=== PATIENT | female | born 1980 | race Two or more races ===

== ENCOUNTER 2021-06-10 08:40 | Emergency (ER) | payer MEDICAID ==
[~2021-06-10] VITALS: Ht 165.1 cm; Wt 102.1 kg
[~2021-06-10 08:40] MED LIST: PREN-96 PO
[2021-06-10 09:43] VITALS: BP 115/77
== END 2021-06-10 11:54 | disposition home or self-care (01) ==
LOC: ER 08:40
DX: U07.1 COVID-19 (principal); J03.90 Acute tonsillitis, unspecified
CPT/HCPCS: 36415; 71046; 87426

== ENCOUNTER 2025-03-01 14:37 | Inpatient (IN) | payer MEDICAID ==
[~2025-03-01] VITALS: Ht 165.1 cm; Wt 101.8 kg
--- NOTE | 2025-03-01 14:55 | ECG ---
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
--- NOTE | 2025-03-01 15:14 | ED.PDOC ---
History of Present Illness HPI Comments 44-year-old female presents with a chief complaint of dizziness x onset . Patient states that her dizziness is described as the room is spinning. Patient reports that she has had this similar sensation in the past. Chief Complaint: Dizziness Time Seen by MD: 15:05 Reviewed Notes: Medications, Allergies Allergies: Coded Allergies: NO KNOWN ALLERGIES (Unverified , 04/23/13) Home Meds Active Scripts Meclizine HCl (Meclizine 25) 25 Mg Tab, 25 MG PO DAILY for 5 Days, #5 TAB Prov:CALEB NAIK MD 03/01/25 Reported Medications Vit W/ Ferrous Fumara ( One Daily) Daily Tab, 1 TAB PO DAILY, #30 TAB 11 Refills 07/17/14 Information Source: Patient Mode of Arrival: Ambulatory Severity: Moderate Timing: Days Duration: Since onset Prehospital treatment: None Past Medical History PAST MEDICAL HISTORY: Denies Surgical History: Denies all surgeries 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: Denies all REAL 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 TRANSACTION COORDINATOR Hx Family History Family History: Reviewed,noncontributory to illness Social History Smoker: Non-Smoker Lives In: Home Constitutional: denies: chills, diaphoresis, fatigue, fever, malaise, sweats, weakness, others EENTM: denies: blurred vision, double vision, ear bleeding, ear discharge, ear drainage, ear pain, ear ringing, eye pain, eye redness, hearing loss, mouth pain, mouth swelling, nasal discharge, nose bleeding, nose congestion, nose pain, photophobia, tearing, throat pain, throat swelling, voice changes, others Respiratory: denies: cough, hemoptysis, orthopnea, SOB at rest, shortness of breath, SOB with excertion, stridor, wheezing, others Cardiovascular: denies: chest pain, dizzy spells, diaphoresis, Dyspnea on exertion, edema, irregular heart beat, left arm pain, lightheadedness, palpitations, PND, syncope, others Gastrointestinal: denies: abdomen distended, abdominal pain, blood streaked bowels, constipated, diarrhea, dysphagia, difficulty swallowing, hematemesis, melena, nausea, poor appetite, poor fluid intake, rectal bleeding, rectal pain, vomiting, others Genitourinary: denies: abnormal vagina bleeding, burning, dyspareunia, dysuria, flank pain, frequency, hematuria, incontinence, pain, , vagina discharge, urgency, others Neurological: reports: dizziness; denies: fainting, headache, left sided numbness, left sided weakness, numbness, paresthesia, pre-existing deficit, right sided numbness, right sided weakness, seizure, speech problems, tingling, tremors, weakness, others Musculoskeletal: denies: back pain, gout, joint pain, joint swelling, muscle pain, muscle stiffness, neck pain, others Integumetry: denies: bruises, change in color, change in hair/nails, dryness, laceration, lesions, lumps, rash, wounds, others Allergic/Immunocompromised: denies: Difficulty Healing, Frequent Infections, Hives, Itching, others Hematologic/Lymphatic: denies: anemia, blood clots, easy bleeding, easy bruising, swollen glands, others Endocrine: denies: excessive hunger, excessive sweating, excessive thirst, excessive urination, flushing, intolerance to cold, intolerance to heat, unexplained weight gain, unexplained weight loss, others Psychiatric: denies: anxiety, bipolar disorder, depression, hopeless, panic disorder, schizophrenia, sleepless, suicidal, others All Other Systems: Reviewed and Negative Physical Exam General Appearance: Moderate Distress, Normal HEENT: Normal ENT Inspection, Pharynx Normal, TMs Normal Neck: Full Range of Motion, Non-Tender, Normal, Normal Inspection Respiratory: Chest Non-Tender, Lungs Clear, No Accessory Muscle Use, No Respiratory Distress, Normal Breath Sounds Cardiovascular: No Edema, No JVD, No Murmur, No Gallop, Normal Peripheral Pulses, Regular Rate/Rhythm Breast Exam: Deferred Gastrointestinal: No Organomegaly, Non Tender, No Pulsatile Mass, Normal Bowel Sounds, Soft Genitalia: Deferred Pelvic: Deferred Rectal: Deferred Extremities: No calf tenderness, Normal capillary refill, Normal inspection, Normal range of motion, Non-tender, No pedal edema Musculoskeletal : Apperance: Normal Neurologic: Alert, corporate administrative assistant II-XII nml as Tested, No Motor Deficits, Normal Affect, Normal Mood, No Sensory Deficits Cerebellar Function: Normal Reflexes: Normal Skin: Dry, Normal Color, Warm Peripheral Pulses: 3+ Radial (R), 3+ Radial (L) Lymphatic: No Adenopathy Was a procedure done? Was a procedure done?: No Differential Dx Considerations may include: Autonomic disorder Electrolyte imbalance X-Ray, Labs, Meds, VS Vital Signs Date Time Temp Pulse Resp B/P (MAP) Pulse Ox O2 Delivery O2 Flow Rate FiO2 03/01/25 14:46 78 03/01/25 14:38 98.9 83 18 132/86 99 98.9 Lab Test 03/01/25 15:00 Range/Units White Blood Count 13.5 H 4.4-10.8 10^3/uL Red Blood Count 4.77 4.0-5.20 10^6/uL Hemoglobin 14.0 12.2-16.2 g/dL Hematocrit 41.6 36.0-46.0 % Mean Corpuscular Volume 87.3 80.0-100.0 fL Mean Corpuscular Hemoglobin 29.3 28.0-32.0 pg Mean Corpuscular Hemoglobin Concent 33.5 32.0-36.0 g/dL Red Cell Distribution Width 14.2 11.8-14.3 % Platelet Count 315 140-450 10^3/uL Mean Platelet Volume 8.6 6.9-10.8 fL Neutrophils (%) (Auto) 67.3 37.0-80.0 % Lymphocytes (%) (Auto) 25.0 10.0-50.0 % Monocytes (%) (Auto) 5.6 0.0-12.0 % Eosinophils (%) (Auto) 1.4 0.0-7.0 % Basophils (%) (Auto) 0.7 0.0-2.0 % Neutrophils # (Auto) 9.1 H 1.6-8.6 10 ^3/uL Lymphocytes # (Auto) 3.4 0.4-5.4 10 ^3/uL Monocytes # (Auto) 0.8 0-1.3 10 ^3/uL Eosinophils # (Auto) 0.2 0-0.8 10 ^3/uL Basophils # (Auto) 0.1 0-0.2 10 ^3/uL Nucleated Red Blood Cells 0.0 % Sodium Level 140 136-145 mmol/L Potassium Level 3.7 3.5-5.1 mmol/L Chloride Level 105 98-107 mmol/L Carbon Dioxide Level 26 20-31 mmol/L Anion Gap 9 5-15 Blood Urea Nitrogen 10 9-23 mg/dL Creatinine 0.51 L 0.550-1.02 mg/dL Glomerular Filtration Rate Calc 118 >90 mL/min BUN/Creatinine Ratio 19.6 10.0-20.0 Serum Glucose 114 H 74-106 mg/dL Calcium Level 9.2 8.7-10.4 mg/dL Current Medications Medications (Trade) Dose Ordered Sig/Alessio Route Start Time Stop Time Status Last Admin Meclizine HCl (Antivert Tablet) 25 mg ONCE ONCE PO 03/01/25 15:30 03/01/25 15:31 DC 03/01/25 15:50 Patient alert. Complaining of dizziness. Vitals stable. Answering questions. Neurological examination pristine. Was given prescription of meclizine. Patient continues to be dizzy. Possibly will need MRI. WBC elevated. Possible urinary tract infection. Was given Rocephin. Explained to the patient. Continue monitoring. Time of 1ST Reevaluation: 15:35 Reevaluation 1ST: Unchanged Patient Education/Counseling: Diagnosis, Treatment, Need For Follow Up Family Education/Counseling: Diagnosis, Treatment, Need For Follow Up SEPSIS Sepsis Screen Date sepsis recognized/suspect: Mar 01, 2025 Time Sepsis recognized/suspect: 1437 Recent Procedure: No On Antibiotic Therapy: No Respiratory Rate >20: No Heart Rate >90: No Temp<36 C (96.8 F) or >38.3 C: No SBP <90 or MAP <65 mmHG: No New Acute Mental Status Change: No Is the patient on CPAP, BIPAP,: No Physician Orders Urinalysis (03/01/25 14:49) Vital Signs Date Time Temp Pulse Resp B/P (MAP) Pulse Ox O2 Delivery O2 Flow Rate FiO2 03/01/25 14:46 78 03/01/25 14:38 98.9 83 18 132/86 99 98.9 Laboratory Tests Test 03/01/25 15:00 White Blood Count 13.5 10^3/uL (4.4-10.8) H Medications Medications Dose Ordered Sig/Alessio Route Start Time Stop Time Status Last Admin Dose Admin Meclizine HCl 25 mg ONCE ONCE PO 03/01/25 15:30 03/01/25 15:31 DC 03/01/25 15:50 Departure 1 Departure Time of Disposition: 15:16 Impression: Primary Impression: TIA (transient ischemic attack) Disposition: ADMITTED INPATIENT Admit to: Med Surg Condition: Guarded e-Prescriptions Meclizine HCl (Meclizine 25) 25 Mg Tab 25 MG PO DAILY for 5 Days, #5 TAB Prov: CALEB NAIK MD 03/01/25 Critical Care Note Critical Care Time?: No Stability Stability form required: No Heart Score Heart Score: Heart Score Response (Comments) Value History N/A 0 EKG N/A 0 Age N/A 0 Risk Factors N/A 0 Troponin N/A 0 Total 0 I personally scribed for CALEB NAIK MD ([email or web address]) on 03/01/25 at 15:14. Electronically submitted by Tavon Hoffman ([email or web address]). CALEB NAIK MD Mar 01, 2025 15:14
[2025-03-01 15:15] LABS: Chloride 105 mmol/L (98-107); Potassium 3.7 mmol/L (3.5-5.1); Sodium 140 mmol/L (136-145)
[2025-03-01 15:16] LABS: Anion Gap 9 (5-15); Calcium 9.2 mg/dL (8.7-10.4); Carbon Dioxide 26 mmol/L (20-31)
[2025-03-01 15:17] LABS: Hematocrit 41.6 % (36.0-46.0); Hemoglobin 14.0 g/dL (12.2-16.2); Mean Corpuscular Hemoglobin 29.3 pg (28.0-32.0); Mean Corpuscular Volume 87.3 fL (80.0-100.0); Nucleated Red Blood Cells % 0.0 %
[2025-03-01] MEDS ORDERED: MECL1TAB42 PO (15:17)
[2025-03-01 15:21] LABS: BUN/Creatinine Ratio 19.6 (10.0-20.0); Blood Urea Nitrogen 10 mg/dL (9-23)
[2025-03-01 15:24] LABS: Glucose 114 mg/dL (74-106)
[2025-03-01] MEDS: MECLIZINE HCL 25 MG TAB PO ONE (15:50)
[2025-03-01] MEDS: SODIUM CHLORIDE 0.9% 1,000 ML IV ONE (17:00)
--- NOTE | 2025-03-01 17:32 | DVH ---
EXAM: CT HEAD WITHOUT CONTRAST INDICATION: tia TECHNIQUE: CT of the head without intravenous contrast. Radiation Dose Information: CT Dose: CTDI volume is 57.12 mGy. Dose-length product is 915.6 mGy*cm The dose indicators for CT are the volume Computed Tomography (CT) Dose Index (CTDIvol) and the Dose Length Product (DLP), and are measured in units of mGy and mGy-cm, respectively. These indicators are not patient dose, but values generated from the CT scanner acquisition factors. The report includes radiation exposure data for exposures received during this examination. COMPARISON: None FINDINGS: There is no evidence of acute intracranial hemorrhage, extra-axial collection, mass effect, midline s hift, herniation or hydrocephalus. The ventricles, sulci and cisterns are age appropriate. The mason-white differentiation is intact. Patchy periventricular and subcortical white matter hypoattenuation is nonspecific but may be related to small vessel ischemic disease. The visualized paranasal sinuses and mastoid air cells are clear. The surrounding soft tissues and osseous structures are unremarkable. IMPRESSION: 1. No acute intracranial abnormality.
[2025-03-01 18:36] LABS: Urine Protein, UAD Negative (Negative)
[2025-03-01 20:53] LABS: Triglycerides 133.0 mg/dL (< 150)
[2025-03-01 20:54] LABS: Magnesium 2.0 mg/dL (1.6-2.6)
[2025-03-01 20:55] LABS: HDL Cholesterol 42.0 mg/dL (40-59)
[2025-03-01 20:56] LABS: Alanine Aminotransferase 13 U/L (7-40); Albumin 4.1 g/dL (3.2-4.8); Alkaline Phosphatase 87 U/L (46-116); INR 1.07 (0.9-1.15); Partial Thromboplastin Time 29.1 SEC (24.5-34.5); Prothrombin Time 11.3 sec (9.3-11.8); Total Protein 6.9 g/dL (5.7-8.2)
[2025-03-01 20:58] LABS: Bilirubin, Total 0.3 mg/dL (0.2-1.0)
[2025-03-01 20:59] LABS: Cholesterol 201.0 mg/dL (< 200)
[2025-03-01 21:10] LABS: Lactic Acid w/Reflex 3.0 mmol/L (0.4-2.0)
[2025-03-01 21:20] LABS: Bilirubin, Direct < 0.1 mg/dL (<0.3)
--- NOTE | 2025-03-01 21:29 | DVHHPRES ---
History of Present Illness Resident Creating Document: FELICIA BOWSER RESIDENT History of Present Illness This is a 44-year-old female with no significant past medical history, presented to the ER with chief complain of headache. The headache began on , in the frontal part of head, described as pressure-like, with a severity of 8/10. She reports that the pain had subsided on Sunday, today she had worsening headache, which urged her visit to the ER. She also complains of associated dizziness, which started on , eventually resolved and worsened today with the onset of headache. She reports everything around her a spinning, her dizziness is aggravated in the morning with turning her head sideways. She also complains of associated ear fullness, pain, hearing loss in the left ear, and nausea. She reported that ear fullness started 6 months ago, for which she went to an urgent care and underwent aural irrigation. Her ear fullness and pain remained unresolved. She reports no sick contacts, denies fever, chills, or vomiting. PMHx: Recurrent otitis media (previously treated with a amoxicillin) PSHx: No significant history Family history: No significant family history Social history: No history of smoking, alcohol use, marijuana or recreational drug use. She lives in home with family. Next of kin . Home medication: No home medications Allergic history: No allergy history reported. Patient seen and examined at bedside. Currently has no new complaints. Smoke: No ALCOHOL: none Drugs: None Lives: with Family Domestic Violence: Neg Review of Systems ENT: Ear pain, Other (Ear fullness, hearing loss) Gastrointestinal: Nausea Neurological: Other (Headache, dizziness) Allergies: Coded Allergies: NO KNOWN ALLERGIES (Unverified , 04/23/13) Exam Vital Signs Vital Signs Date Time Temp Pulse Resp B/P (MAP) Pulse Ox O2 Delivery O2 Flow Rate FiO2 03/01/25 20:21 99.4 92 14 153/79 (103) 97 99.4 Exam Patient lying in bed, in no acute distress General: Lucid, afebrile, mucosae are moist HEENT: Left ear canal swelling, erythema, tympanic membrane not visualized. Right ear WNL. No mastoid tenderness. Bilateral tonsils are enlarged, no er ythema Cardiovascular: Normal S1 and S2. No murmurs, gallops or rubs Respiratory: Normal ventilation mechanics. Clear lung sounds on auscultation Abdomen: Soft, nontender, no organomegaly, normal bowel sounds MSK/skin: Mobilizes 4 limbs. Skin is dry and warm Neurological: Oriented in 3 spheres. No motor no sensitive deficits. Pupils are isocoric and reactive General Appearance: Alert, Oriented X3, Cooperative HEENT: Atraumatic, Other (Left ear canal swelling, erythema, tympanic membrane not visualized. Right ear WNL. No mastoid tenderness) Respiratory: Clear to auscultation, Normal air movement Cardiovascular: Regular rate, Normal S1, Normal S2, No murmurs Abdominal: Normal bowel sounds, Soft, No tenderness Extremities: No clubbing, No cyanosis, No edema Skin: No rashes, No breakdown Neuro: Normal gait, Normal speech, Strength at 5/5 X4 ext Psych/Mental Status: Mental status NL, Mood NL Labs/Xrays Labs Test 03/01/25 20:29 03/01/25 15:46 03/01/25 15:00 Range/Units Prothrombin Time 11.3 9.3-11.8 sec Prothrombin Time INR 1.07 0.9-1.15 Activated Partial Thromboplast Time 29.1 24.5-34.5 SEC Lactic Acid Level 3.0 *H 0.4-2.0 mmol/L Total Bilirubin 0.3 0.2-1.0 mg/dL Direct Bilirubin < 0.1 <0.3 mg/dL Aspartate Amino Transferase (AST) 14 13-40 U/L Alanine Aminotransferase (ALT) 13 7-40 U/L Alkaline Phosphatase 87 46-116 U/L Total Protein 6.9 5.7-8.2 g/dL Albumin 4.1 3.2-4.8 g/dL Urine Color Colorless Yellow Urine Clarity Clear Clear Urine pH 6.0 5.0-9.0 Urine Specific [place] 1.008 1.001-1.035 Urine Protein Negative Negative Urine Ketones Negative Negative Urine Blood Negative Negative /uL Urine Nitrite Negative Negative Urine Bilirubin Negative Negative Urine Urobilinogen Normal Negative mg/dL Urine Leukocyte Esterase Negative Negative /uL Urine Glucose Normal Normal mg/dL White Blood Count 13.5 H 4.4-10.8 10^3/uL Red Blood Count 4.77 4.0-5.20 10^6/uL Hemoglobin 14.0 12.2-16.2 g/dL Hematocrit 41.6 36.0-46.0 % Mean Corpuscular Volume 87.3 80.0-100.0 fL Mean Corpuscular Hemoglobin 29.3 28.0-32.0 pg Mean Corpuscular Hemoglobin Concent 33.5 32.0-36.0 g/dL Red Cell Distribution Width 14.2 11.8-14.3 % Platelet Count 315 140-450 10^3/uL Mean Platelet Volume 8.6 6.9-10.8 fL Neutrophils (%) (Auto) 67.3 37.0-80.0 % Lymphocytes (%) (Auto) 25.0 10.0-50.0 % Monocytes (%) (Auto) 5.6 0.0-12.0 % Eosinophils (%) (Auto) 1.4 0.0-7.0 % Basophils (%) (Auto) 0.7 0.0-2.0 % Neutrophils # (Auto) 9.1 H 1.6-8.6 10 ^3/uL Lymphocytes # (Auto) 3.4 0.4-5.4 10 ^3/uL Monocytes # (Auto) 0.8 0-1.3 10 ^3/uL Eosinophils # (Auto) 0.2 0-0.8 10 ^3/uL Basophils # (Auto) 0.1 0-0.2 10 ^3/uL Nucleated Red Blood Cells 0.0 % Sodium Level 140 136-145 mmol/L Potassium Level 3.7 3.5-5.1 mmol/L Chloride Level 105 98-107 mmol/L Carbon Dioxide Level 26 20-31 mmol/L Anion Gap 9 5-15 Blood Urea Nitrogen 10 9-23 mg/dL Creatinine 0.51 L 0.550-1.02 mg/dL Glomerular Filtration Rate Calc 118 >90 mL/min BUN/Creatinine Ratio 19.6 10.0-20.0 Serum Glucose 114 H 74-106 mg/dL Hemoglobin A1c 5.6 <5.7 % A1C Calcium Level 9.2 8.7-10.4 mg/dL Phosphorus Level 3.3 2.4-5.1 mg/dL Magnesium Level 2.0 1.6-2.6 mg/dL Triglycerides Level 133 < 150 mg/dL Cholesterol Level 201 H < 200 mg/dL LDL Cholesterol 155 H < 100 mg/dL HDL Cholesterol 42 40-59 mg/dL Thyroid Stimulating Hormone (TSH) 1.20 0.55-4.78 uIU/mL SEPSIS Sepsis Screen Date sepsis recognized/suspect: Mar 01, 2025 Time Sepsis recognized/suspect: 8 Recent Procedure: No On Antibiotic Therapy: No Respiratory Rate >20: No Heart Rate >90: No Temp<36 C (96.8 F) or >38.3 C: No SBP <90 or MAP <65 mmHG: No New Acute Mental Status Change: No Is the patient on CPAP, BIPAP,: No Physician Orders Head Without Contrast (03/01/25 17:00) Vitamin D, 25-Hydroxy (03/01/25 20:13) Vitamin B12 (03/01/25 20:13) Drug Screen (03/01/25 20:13) Admit (03/01/25:) Allergies (03/01/25 21:) Code Status (03/01/25:) Acetaminophen Tablet (Tylenol Tablet) (03/01/25 21:30) Ondansetron Hcl (Zofran) (03/01/25 21:30) Enoxaparin Sodium (Lovenox) (03/02/25 10:00) Complete Blood Count (03/02/25 04:00) Comprehensive Metabolic Panel (03/02/25 04:00) Morphine Sulfate Injection (03/01/25 21:30) Stat Ekg For Chest Pain (03/01/25 21:21) Notify Md Of Changes From Base (03/01/25 21:) Popped Corn Oven Attendant For 24 Hours (03/01/25 21:21) Emergency Dysrhythmia Protocol (03/01/25 21:) Rhythm Strips Once Every Shift (03/01/25 21:21) Oxygen By Nasal Cannula (03/01/25:) Levofloxacin Levaquin (03/02/25 10:00) Levofloxacin Levaquin (03/01/25 21:30) NS (03/01/25 21:30) NS (03/01/25 21:30) Meclizine Tablet (Antivert Tablet) (03/01/25 21:30) Methylprednisolone Sod Succ (Solu Medrol (03/01/25 22:00) Methylprednisolone Sod Succ (Solu Medrol (03/01/25 21:30) Blood Culture (03/01/25 21:21) Urine Bacterial Culture (03/01/25 21:21) Respiratory Culture W/ Gs (03/01/25 21:21) (Nf) Vit W/ Ferrous Fumara (Pre (03/02/25 10:00) Vital Signs Date Time Temp Pulse Resp B/P (MAP) Pulse Ox O2 Delivery O2 Flow Rate FiO2 03/01/25 20:21 99.4 92 14 153/79 (103) 97 99.4 03/01/25 14:46 78 03/01/25 14:38 98.9 83 18 132/86 99 98.9 Laboratory Tests Test 03/01/25 15:00 03/01/25 20:29 White Blood Count 13.5 10^3/uL (4.4-10.8) H Lactic Acid Level 3.0 mmol/L (0.4-2.0) *H Medications Medications Dose Ordered Sig/Alessio Route Start Time Stop Time Status Last Admin Dose Admin Ceftriaxone Sodium 50 ml @ 100 mls/hr ONCE ONCE IV 03/01/25 17:00 03/01/25 17:29 DC 03/01/25 17:33 100 MLS/HR Meclizine HCl 25 mg ONCE ONCE PO 03/01/25 15:30 03/01/25 15:31 DC 03/01/25 15:50 25 MG Sodium Chloride 1,000 ml @ 1,000 mls/hr Q1H ONCE IV 03/01/25 17:00 03/01/25 17:59 DC 03/01/25 17:00 1,000 MLS/HR Assessment/Plan Assessment/Plan Sepsis likely due to otitis media Lactic acidosis, neutrophilic leukocytosis CT head reports no acute abnormality. On observation, could evidence small mass in external left ear canal. Blood culture, sputum culture ordered IV levofloxacin 500 mg q.8 IV methylprednisolone 40 mg daily IV Zofran, meclizine p.o as needed IV NS bolus with maintenance Patient will benefit from evaluation of ENT specialist as an outpatient Hyperlipidemia Labs show Elevated cholesterol, LDL, low HDL Follow with PCP ASCVD risk of 0.5%. No indication for atorvastatin at this point. Indicate healthy lifestyle habits Obesity BMI 37.3 Counseled on lifestyle and diet DIET: Regular DVT PROPHYLAXIS: Lovenox CODE STATUS: Goals of care discussed with patient at bedside for more than 38 minutes. Full code DISPOSITION: Telemetry Patient's status and plan discussed with the patient. Case discussed with Dr. Celestin. Plan discussed with: Patient, Other (Nurses) My Orders Orders - FELICIA BOWSER Procedure Category Date Status Time Admit ADMIT 03/01/25 Transmitted 21:21 Allergies DAMIÁN 03/01/25 Transmitted 21:21 Code Status CODE 03/01/25 Transmitted 21:21 Acetaminophen Tablet PHA 03/01/25 Transmitted (Tylenol Tablet) 21:30 Ondansetron Hcl PHA 03/01/25 Transmitted (Zofran) 21:30 Enoxaparin Sodium PHA 03/02/25 Transmitted (Lovenox) 10:00 Complete Blood Count LAB 03/02/25 Verified 04:00 Comprehensive LAB 03/02/25 Verified Metabolic Panel 04:00 Morphine Sulfate PHA 03/01/25 Transmitted Injection 21:30 Stat Ekg For Chest DAMIÁN 03/01/25 Transmitted Pain 21:21 Notify Md Of Changes [facility] 03/01/25 Transmitted From Base 21:21 Popped Corn Oven Attendant For [facility] 03/01/25 Transmitted 24 Hours 21:21 Emergency Dysrhythmia DAMIÁN 03/01/25 Transmitted Protocol 21:21 Rhythm Strips Once DAMIÁN 03/01/25 Transmitted Every Shift 21:21 Oxygen By Nasal RT 03/01/25 Transmitted Cannula 21:21 Levofloxacin Levaquin PHA 03/02/25 Transmitted 10:00 Levofloxacin Levaquin PHA 03/01/25 Transmitted 21:30 NS PHA 03/01/25 Transmitted 21:30 NS PHA 03/01/25 Transmitted 21:30 Meclizine Tablet PHA 03/01/25 Transmitted (Antivert Tablet) 21:30 Methylprednisolone PHA 03/01/25 Transmitted Sod Succ (Solu Medrol 22:00 Methylprednisolone PHA 03/01/25 Transmitted Sod Succ (Solu Medrol 21:30 Blood Culture LESLIE 03/01/25 Transmitted 21:21 Urine Bacterial LESLIE 03/01/25 Transmitted Culture 21:21 Respiratory Culture LESLIE 03/01/25 Transmitted W/ Gs 21:21 (Nf) Vit W/ PHA 03/02/25 Verified Ferrous Fumara (Pre 10:00 Date of Service: Mar 01, 2025 Billing Provider: SANDRO CELESTIN MD Common Visit Codes: [id number] INP/OBS CARE (HIGH) Secondary Visit Codes: [id number] CARE PLAN 30 MINUTES FELICIA BOWSER Mar 01, 2025 21:29 CHERYL REYNA RESIDENT Mar 02, 2025 04:53
[2025-03-01] MEDS ORDERED: ACETAMINOPHEN 325 MG TAB PO PRN (21:30)
[2025-03-01] MEDS ORDERED: MORPHINE SULFATE INJ 2 MG/ml SYRG IV PRN (21:30)
[2025-03-01] MEDS ORDERED: ONDANSETRON HCL 4 MG/2 ML VIAL IV PRN (21:30)
[2025-03-01] MEDS ORDERED: MECLIZINE HCL 25 MG TAB PO PRN (21:30)
[2025-03-01 21:48] LABS: Amphetamine Screen, Urine Neg (NEGATIVE); Barbiturate Scree,Urine Neg (NEGATIVE); Benzodiazephine Screen, Urine Neg (NEGATIVE); Cannabinoid Screen, Urine Neg (NEGATIVE); Cocaine Screen, Urine Neg (NEGATIVE); Opiate Scree,Urine Neg (NEGATIVE); Phencyclidine Screen, Urine Neg (NEGATIVE)
[2025-03-02] MEDS: SODIUM CHLORIDE 0.9% 2,000 ML IV ONE (00:35)
[2025-03-02] MEDS: methylPREDNISolone SOD SUCC 40 MG/ML VL IV ONE (00:36)
[2025-03-02] MEDS: SODIUM CHLORIDE 0.9% 1,000 ML IV SCH (00:40)
[2025-03-02 07:15] LABS: Hematocrit 40.8 % (36.0-46.0); Hemoglobin 13.8 g/dL (12.2-16.2); Mean Corpuscular Hemoglobin 29.7 pg (28.0-32.0); Mean Corpuscular Volume 87.4 fL (80.0-100.0); Nucleated Red Blood Cells % 0.0 %
[2025-03-02 07:36] LABS: Alanine Aminotransferase 14 U/L (7-40); Albumin 4.6 g/dL (3.2-4.8); Alkaline Phosphatase 96 U/L (46-116); Anion Gap 10 (5-15); Calcium 9.2 mg/dL (8.7-10.4); Carbon Dioxide 23 mmol/L (20-31); Potassium 3.9 mmol/L (3.5-5.1); Sodium 140 mmol/L (136-145); Total Protein 7.9 g/dL (5.7-8.2)
[2025-03-02 07:37] LABS: Bilirubin, Total 0.4 mg/dL (0.2-1.0)
[2025-03-02 07:39] LABS: BUN/Creatinine Ratio 8.9 (10.0-20.0); Blood Urea Nitrogen < 5 mg/dL (9-23); Chloride 107 mmol/L (98-107); Glucose 134 mg/dL (74-106)
[2025-03-02 09:00] VITALS: BP 135/81; PULSE 85; RESP 11; TEMP 97.6; O2SAT 97
[2025-03-02] MEDS ORDERED: PATIENTS OWN MEDICATION (Prenatal Vit W/ Ferrous Fumara (Prenatal One Daily) 1 TAB) PO SCH (10:00)
[2025-03-02] MEDS: PRENATAL VITAMIN TAB PO SCH (10:55)
[2025-03-02] MEDS: methylPREDNISolone SOD SUCC 40 MG/ML VL IV SCH (10:55)
[2025-03-02] MEDS: ENOXAPARIN SOD 40 MG/0.4 ML SYRINGE SC SCH (10:56)
[2025-03-02] MEDS ORDERED: LEVO500T91 PO (13:17)
[2025-03-02 13:51] VITALS: BP 128/68; PULSE 66; RESP 18; TEMP 98.2; O2SAT 96
--- NOTE | 2025-03-12 13:25 | DVHDS2 ---
Discharge Summary Date of Admission Mar 01, 2025 at 21:21 Date of Discharge: Mar 02, 2025 Labs/Diagnostic Data: Laboratory Results Test 03/02/25 07:04 03/01/25 20:29 03/01/25 15:46 03/01/25 15:00 White Blood Count 11.2 10^3/uL (4.4-10.8) Red Blood Count 4.66 10^6/uL (4.0-5.20) Hemoglobin 13.8 g/dL (12.2-16.2) Hematocrit 40.8 % (36.0-46.0) Mean Corpuscular Volume 87.4 fL (80.0-100.0) Mean Corpuscular Hemoglobin 29.7 pg (28.0-32.0) Mean Corpuscular Hemoglobin Concent 33.9 g/dL (32.0-36.0) Red Cell Distribution Width 14.3 % (11.8-14.3) Platelet Count 318 10^3/uL (140-450) Mean Platelet Volume 8.6 fL (6.9-10.8) Neutrophils (%) (Auto) 88.8 % (37.0-80.0) Lymphocytes (%) (Auto) 10.3 % (10.0-50.0) Monocytes (%) (Auto) 0.7 % (0.0-12.0) Eosinophils (%) (Auto) 0.0 % (0.0-7.0) Basophils (%) (Auto) 0.2 % (0.0-2.0) Neutrophils # (Auto) 9.9 10 ^3/uL (1.6-8.6) Lymphocytes # (Auto) 1.2 10 ^3/uL (0.4-5.4) Monocytes # (Auto) 0.1 10 ^3/uL (0-1.3) Eosinophils # (Auto) 0 10 ^3/uL (0-0.8) Basophils # (Auto) 0 10 ^3/uL (0-0.2) Nucleated Red Blood Cells 0.0 % Sodium Level 140 mmol/L (136-145) Potassium Level 3.9 mmol/L (3.5-5.1) Chloride Level 107 mmol/L (98-107) Carbon Dioxide Level 23 mmol/L (20-31) Anion Gap 10 (5-15) Blood Urea Nitrogen < 5 mg/dL (9-23) Creatinine 0.56 mg/dL (0.550-1.02) Glomerular Filtration Rate Calc 115 mL/min (>90) BUN/Creatinine Ratio 8.9 (10.0-20.0) Serum Glucose 134 mg/dL (74-106) Lactic Acid Level 1.6 mmol/L (0.4-2.0) Calcium Level 9.2 mg/dL (8.7-10.4) Total Bilirubin 0.4 mg/dL (0.2-1.0) Aspartate Amino Transferase (AST) 15 U/L (13-40) Alanine Aminotransferase (ALT) 14 U/L (7-40) Alkaline Phosphatase 96 U/L (46-116) Total Protein 7.9 g/dL (5.7-8.2) Albumin 4.6 g/dL (3.2-4.8) Prothrombin Time 11.3 sec (9.3-11.8) Prothrombin Time INR 1.07 (0.9-1.15) Activated Partial Thromboplast Time 29.1 SEC (24.5-34.5) Direct Bilirubin < 0.1 mg/dL (<0.3) Urine Color Colorless (Yellow) Urine Clarity Clear (Clear) Urine pH 6.0 (5.0-9.0) Urine Specific Christine 1.008 (1.001-1.035) Urine Protein Negative (Negative) Urine Ketones Negative (Negative) Urine Blood Negative /uL (Negative) Urine Nitrite Negative (Negative) Urine Bilirubin Negative (Negative) Urine Urobilinogen Normal mg/dL (Negative) Urine Leukocyte Esterase Negative /uL (Negative) Urine Glucose Normal mg/dL (Normal) Urine Test Negative (Negative) Urine Opiates Screen Neg (NEGATIVE) Urine Fentanyl Screen Neg (NEGATIVE) Urine Barbiturates Screen Neg (NEGATIVE) Urine Phencyclidine Screen Neg (NEGATIVE) Urine Amphetamines Screen Neg (NEGATIVE) Urine Benzodiazepines Screen Neg (NEGATIVE) Urine Cocaine Screen Neg (NEGATIVE) Urine Cannabinoids Screen Neg (NEGATIVE) Hemoglobin A1c 5.6 % A1C (<5.7) Phosphorus Level 3.3 mg/dL (2.4-5.1) Magnesium Level 2.0 mg/dL (1.6-2.6) Triglycerides Level 133 mg/dL (< 150) Cholesterol Level 201 mg/dL (< 200) LDL Cholesterol 155 mg/dL (< 100) HDL Cholesterol 42 mg/dL (40-59) Vitamin B12 Level 435 pg/mL (211-911) Vitamin D 25-Hydroxy 16.8 ng/mL (30.0-100) Thyroid Stimulating Hormone (TSH) 1.20 uIU/mL (0.55-4.78) Other Laboratory Tests 03/02/25 07:04 Brief Hx & Hospital Course: 44 yo F with recurrent ear inf admitted for acutae otitis media. seen in ED, received IV ABX, imaging normal, no tachy, bp good, leukocytosis. stable to dc with home oral abx. patient to follow up with dc clinic and pcp. will need ENT in the outpatient setting Condition at Discharge: Good Final Diagnosis/Problems List acute otitis media, recurrent vertigo related to above sepsis from above lactic acidosis resolved obesity Discharge Disposition: Home Discharge Instruct/Medications Diet: Regular Activity: No Restrictions, As Tolerated Follow Up/Referral: dc clinic ENT PCP Medications: levofloxacin Scheduled Levofloxacin Hemihydrate (Levofloxacin), 1 TAB PO DAILY Meclizine HCl (Meclizine 25), 25 MG PO DAILY Discharge Statement: "Patient was advised to return to the ER or call 911 if any headaches, dizziness, shortness of breath, chest pain, abdominal pain, bleeding, fevers, or worsening of medical condition. Patient was counseled about treatment plan, medications, possible side effects, patientverbalized understanding. All questions were answered to the best of my ability. This discharge took greater then 30 minutes in planning, reviewing documentation, counseling the patient, and discussing with other team members." ASSESSMENT ASSESSMENT Assessment acute otitis media, recurrent vertigo related to above sepsis from above lactic acidosis resolved obesity Date of Service: Mar 02, 2025 Billing Provider: AROLDO LOWRY MD Common Visit Codes: 01361-MZY/OBS DISCH DAY >30min AROLDO LOWRY MD Mar 12, 2025 13:25
== END 2025-03-02 14:20 | disposition home or self-care (01) | DRG 113 ==
LOC: ER 14:38 → OVERFLOW 21:21
PROVIDERS: ADMIT Student in an Organized Health Care Education/Training Program; ATTEND Student in an Organized Health Care Education/Training Program
DX: H66.92 Otitis media, unspecified, left ear (principal); E87.20 Acidosis, unspecified; G45.9 Transient cerebral ischemic attack, unspecified; E78.5 Hyperlipidemia, unspecified; E66.9 Obesity, unspecified; Z68.37 Body mass index [BMI] 37.0-37.9, adult; Z79.899 Other long term (current) drug therapy
CPT/HCPCS: 36415; 70450; 80048; 80053; 80061; 80076; 80307; 81003; 81025; 82306; 82607; 83036; 83605; 83735; 84100; 84443; 85025; 85610; 85730; 87040; 87086; 93005; 96361; 96365; G0378; J1956